=== PATIENT | female | born 2000 | race Caucasian/White ===

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

== ENCOUNTER 2019-02-01 14:36 | Outpatient (REF) | payer MEDICAID, SELFPAY ==
[2019-02-01 21:00] LABS: HCT 40.5 % (36.0-46.0); HGB 13.6 g/dL (12.0-15.5); Mean Corp. HGB Concentration 33.6 g/dL (32.0-36.0); Mean Corpuscular Hemoglobin 30.4 pg (27.0-33.0); Mean Corpuscular Volume 90.6 fL (80-95); Mean Platelet Volume 9.8 fL (8.0-11.0); Platelet Count 221 x1000/uL (130-400); RBC 4.47 m/cumm (4.00-5.20); RBC Distribution Width 12.7 % (11.7-14.6); White Blood Cell Count 4.45 k/cumm (4.4-10.8)
[2019-02-01 21:36] LABS: ALT 23 U/L (12-78); AST 14 U/L (15-37); Anion Gap 8.8 mmol/L (3-11); BUN 12 mg/dL (7-18); CO2 26.2 mmol/L (21.0-32.0); CREATININE 0.71 mg/dL (0.55-1.02); Calcium 8.8 mg/dL (8.5-10.1); Chloride 105 mmol/L (98-107); Glucose 85 mg/dL (70-100); Potassium 4.4 mmol/L (3.5-5.1); Sodium 140 mmol/L (136-145)
[2019-02-05 11:33] LABS: Lyme Ab w Rflx to Lyme Confirm Negative
[2019-02-05 20:43] LABS: Anaplasma phagocytophilum Negative (Negative); B. miyamotoi PCR Negative (Negative); Babesia divergens/MO-1 Negative (Negative); Babesia duncani Negative (Negative); Babesia microti Negative (Negative); Ehrlichia chaffeensis Negative (Negative); Ehrlichia ewingii/canis Negative (Negative); Ehrlichia muris eauclairensis Negative (Negative)
== END 2019-02-01 14:56 ==
LOC: NCHCN 14:36
PROVIDERS: PCP Nurse Practitioner Family; Visit Provider Nurse Practitioner Family
DX: M35.7 Hypermobility syndrome (principal); N92.6 Irregular menstruation, unspecified
CPT/HCPCS: 80048; 85027; 87798; 84450; 84460; 86618

== ENCOUNTER 2019-10-31 21:05 | Outpatient (REF) | payer OTHER, SELFPAY | END 2019-10-31 21:25 | LOC: NCHCN 21:05 | PROVIDERS: PCP Nurse Practitioner Family; Visit Provider Nurse Practitioner Family | DX: R30.0 Dysuria (principal) | CPT/HCPCS: 87086 ==

== ENCOUNTER 2019-11-02 21:08 | Outpatient (REF) | payer OTHER, SELFPAY ==
[2019-11-05 15:14] LABS: Chlamydia Result Positive (Negative); GC Result Negative (Negative)
== END 2019-11-02 21:28 ==
LOC: NCHCN 21:08
PROVIDERS: PCP Nurse Practitioner Family; Visit Provider Nurse Practitioner Family
DX: R30.0 Dysuria (principal); Z11.3 Encounter for screening for infections with a predominantly sexual mode of transmission
CPT/HCPCS: 87491; 87591

== ENCOUNTER 2020-01-16 15:29 | Outpatient (REF) | payer BC, SELFPAY ==
[2020-01-16 20:49] LABS: HCT 40.3 % (36.0-46.0); HGB 13.2 g/dL (11.2-15.7); MCH 30.3 pg (27.0-33.0); MCHC 32.8 % (32.0-36.0); MCV 92.6 fL (80-95); MPV 10.3 fL (8.0-11.0); Platelet Count 208 10^3/uL (130-400); RBC 4.35 10^6/uL (3.93-5.22); RDW-SD 41.3 fL
[2020-01-16 21:13] LABS: ALT 22 U/L (14-59); AST 14 U/L (15-37); Alkaline Phosphatase 53 U/L (46-116); Anion Gap 8.9 mmol/L (3-11); BUN 10 mg/dL (7-18); Bilirubin, Total 0.2 mg/dL (0.2-1.0); C-Reactive Protein 0.07 mg/dL (0.0-0.3); CO2 27.1 mmol/L (21.0-32.0); CREATININE 0.72 mg/dL (0.55-1.02); Calcium 9.1 mg/dL (8.5-10.1); Chloride 104 mmol/L (98-107); Glucose 85 mg/dL (74-106); Potassium 4.2 mmol/L (3.5-5.1); Sodium 140 mmol/L (136-145); Total Protein 7.3 g/dL (6.4-8.2)
[2020-01-16 21:52] LABS: ESR 14 mm/hr (0-20)
== END 2020-01-16 15:49 ==
LOC: NCHCN 15:29
PROVIDERS: PCP Nurse Practitioner Family; Visit Provider Physician Assistant
DX: K62.5 Hemorrhage of anus and rectum (principal)
CPT/HCPCS: 80053; 85027; 85652; 86140

== ENCOUNTER 2020-03-17 16:53 | Inpatient (IN) | payer BC, SELFPAY ==
--- NOTE | 2020-03-17 17:05 | ED.GENADUL_ITS ---
Discharge Plan Disposition Patient Disposition: [facility] INPATIENT Condition: Fair Discharge Details Chief Complaint: Abd Prob Clinical Impression: Pyelonephritis Admit Date/Time: 03/17/20 19:43 Admit Provider: Javi Pereira Attending Provider: Javi Pereira Primary Care Provider: Aurea Frey ED Provider: Krissy Mukherjee Discharge Data Discharge Date/Time-TO BE ENTERED AT DEPARTURE: 03/17/20 20:55 Medical Decision Making Patient is a pleasant 19-year-old female patient with a chief complaint of right-sided flank and abdominal pain. She reports this began last night but increased hourly. Pain is now unmanageable. States she been using Advil without any resolution of her discomfort. She has not had this historically. Previous abdominal surgeries. Patient denies being , had a UPT at primary care today reports it was negative. States that she has been having low-grade fevers. Denies sick contacts or URI symptoms. No change in bowel habits. The urinating more frequently than normal but denies any dysuria or hematuria. Denies any vaginal symptoms. Has vomited x3 and is currently nauseated. On exam, patient appears tearful and uncomfortable. Lungs are clear. Patient is exquisitely tender over right CVA. Does have some mild right lower abdominal pain as well. She also has pain with movement of the right leg, this pain radiates up the right flank. She has no peritoneal findings. She has a family history of kidney stones, I am concerned for potential infected stone and will move forward with CT. Also considered appendicitis, pyelonephritis vs. other. Will treat pain with morphine, nausea with zofran. Will hydrate. Pain does not seem low enough to suggest torsion, she has no vaginal symptoms. UPT negative. FINDINGS: Liver: Normal. No mass. Gallbladder and bile ducts: Normal. No calcified stones. No ductal dilation. Pancreas: Normal. No ductal dilation. Spleen: Normal. No splenomegaly. Adrenals: Normal. No mass. Kidneys and ureters: Heterogeneous hypoattenuating focus in the lower pole of the right kidneys. No hydronephrosis. Stomach and bowel: Unremarkable. No obstruction. No mucosal thickening. Appendix: No evidence of appendicitis. Intraperitoneal space: Trace fluid in the cul-de-sac. No free air. Vasculature: Unremarkable. No abdominal aortic aneurysm. Lymph nodes: Unremarkable. No enlarged lymph nodes. Urinary bladder: Slight thickening of the wall of the urinary bladder. Reproductive: 4.2 cm right ovarian cyst. Bones/joints: Unremarkable. No acute fracture. Soft tissues: Unremarkable. IMPRESSION: 1. 4.2 cm right ovarian cyst. 2. Possible right pyelonephritis and cystitis. Labs reviewed. No leukocytosis. Stable H&H. CMP without significant abnormality. Patient does have a large amount of leukocyte esterase, many bacteria. This has been sent for culture. Discussed the findings with the patient. We will begin her on IV antibiotics. We will continue to hydrate the patient. She does continue to need IV pain medications. As she has been febrile, requiring IV pain medications I do feel that admission for IV antibiotics and continued management of her pyelonephritis is appropriate. Consulted with Dr. Pereira who agrees to admission. Discussed this plan with the patient is in agreement. HPI General Mode of arrival: ambulatory . Date/Time Provider Initiated Documentation: 03/17/20 17:05 . Limitations to Documentation: no limitations . Information obtained by: patient and RN notes reviewed . History of Present Illness 19 year old F presents to the emergency department with the chief complaint of Right flank pain, described as moderate, with intensity rated at 7. Quality is described as aching, and is localized to the back and right. Patient abdomen (Indicates right lower quadrant). Patient started experiencing this day(s) (1) and it has been constant. No relieving factors improve symptom(s), No exacerbating factors reported . Patient notes fever/chills, loss of appetite and nausea/vomiting (Vomited x3); denies chest pain, cough, rash, shortness of breath and weakness. Patient did receive the following treatments prior to arrival, none Related Data Home Medications Medication Instructions Recorded Confirmed ibuprofen [Advil] 200 mg PO PRN 10/08/16 03/17/20 Allergies Allergy/AdvReac Type Severity Reaction Status Date / Time No Known Allergies Allergy Unverified 03/17/20 17:15 General ALEXANDRO: 3 Review of Systems Constitutional Constitutional: Reports as per HPI, Denies chills, Denies fatigue, Reports fever(s), Denies headache(s) and Reports poor appetite ENT Ears, Nose, Mouth, and Throat: Denies headache(s) Cardiovascular Cardiovascular: Reports as per HPI, Denies chest pain and Denies dyspnea Respiratory Respiratory: Reports as per HPI, Denies cough and Denies dyspnea Gastrointestinal Gastrointestinal: Reports as per HPI Genitourinary Genitourinary: Denies genital pruritis, Denies genital lesions, Denies dysuria, Denies pelvic pain, Reports flank pain, Reports urinary urgency, Denies vaginal discharge and Denies vaginal odor Musculoskeletal Musculoskeletal: Reports as per HPI and Reports back pain Integumentary/Breasts Skin/Breast: Reports as per HPI and Denies rash Neurologic Neurologic: Reports as per HPI and Denies headache(s) Endocrine Endocrine: Denies fatigue [facility] Medical History (Updated 03/17/20 @ 22:45 by LINUS Lantigua) Migraine Surgical History Meniscectomy done 10/02, Right / removed 05/05 Left, about 1/2 of meniscus removed (likely she had excess amount on tissue) Family History Mother Dairy product intolerance & several other maternal relatives Father No problems noted. Brother No problems noted. Grandparent Substance abuse Essential hypertension Heart disease Hyperlipidemia Neoplasm Social History Smoking/Tobacco Use Status: Never Alcohol Intake: never Drug use: Never Substance use type: does not use Do you feel safe in your relationship?: Yes Exam Const General: cooperative, uncomfortable, no acute distress, well developed and ill appearing acutely Nutritional Appearance: average body habitus and well nourished Orientation: alert and awake HENMO Head: normal to inspection Mouth: mucous membranes dry (dry) Resp Effort & Inspection: normal respiratory effort, able to speak in complete sentences and no respiratory distress Auscultation: clear to auscultation bilaterally, no rales, no rhonchi and no wheezes Cardio Rate: tachycardic Rhythm: regular rhythm Heart Sounds: S1 normal and S2 normal GI Inspection: normal to inspection Palpation: soft, no hepatosplenomegaly, not firm, no guarding, no masses, no pulsatile masses, not rigid and tender (mild tenderness RLQ, no peritoneal findings) with no rebound tenderness Percussion: normal to percussion Auscultation: normal bowel sounds Back/Spine/Pelvis Back: CVA tenderness (right) Skin General skin exam: no rashes or lesions noted Trauma: no lacerations or abrasions Neuro General: patient alert and patient awake Cognition: normal cognition Speech: speech normal Gait: normal gait Psych Appearance: grossly normal and well kempt Mental Status: mental status grossly normal Speech and Movement: speech and movement normal
[2020-03-17 17:11] VITALS: BP 116/66; PULSE 128; RESP 16; TEMP 37.7; O2SAT 98
[2020-03-17 17:30] LABS: Bilirubin Negative (Negative); Blood Small (Negative); Clarity Cloudy (Clear); Glucose Negative (Negative); Ketones Trace mg/dL (Negative); Leukocyte Esterase Large (Negative); Nitrite Negative (Negative); Urobilinogen 0.2 EU/dL (Up TO 0.2)
[2020-03-17 17:43] LABS: WBC >50 HPF (0-5)
[2020-03-17 17:44] LABS: Bacteria Many HPF (Negative); C & S Indicated? Yes; Casts Negative LPF (Negative); Crystals Negative HPF (Negative); Epithelial Cells Few HPF (Negative); Mucus Trace (Negative)
--- NOTE | 2020-03-17 17:45 | DI.CT_ITS ---
EXAM: CT ABDOMEN PELVIS W CLINICAL HISTORY: RLQ and right flank pain. TECHNIQUE: Imaging Protocol: Axial computed tomography images with coronal and sagittal reformatted images were created and reviewed CONTRAST MATERIAL: Intravenous: Omnipaque 350 Contrast volume:100 ml Oral no COMPARISON: CT ABD PELVIS WITH CONTRAST from 10/20/2017 FINDINGS: ABDOMEN: Lung Bases: Normal where visualized. Liver: Normal density. No measurable mass. Gallbladder and biliary tract: No radiodense calculus or dilation. Pancreas: Normal density, no abnormal calcifications or inflammatory process. Spleen: Normal. Kidneys: Normal size, contour and axis. No radiodense stones or obstructive uropathy. No masses seen. Ill-defined area of decreased perfusion posteriorly in the lower pole of the right kidney suspicious for pyelonephritis. There is no perinephric collection Adrenal glands: No masses seen. Abdominal Aorta: Abdominal portion non-dilated. PELVIS: Bladder: Symmetric distention, no gross wall thickening. Bowel: No obstruction or bowel wall thickening. Peritoneal cavity: No ascites, collection or mesenteric inflammatory response. Physiologic quantity o f fluid in the cul-de-sac. Bones: Disc bulging at L4-5. Mild narrowing of the disc space at L5-S1. No fracture. Reproductive organs: 4 centimeter right ovarian cyst. Retroverted uterus. Lymph nodes: Unremarkable. Impression: 4 centimeter right ovarian cyst and small amount of free fluid. Hypoperfusion of the lower pole of the right kidney, suspicious for pyelonephritis RADIATION DOSE DELIVERED: 868.08mGy.cm Total DLP DATA REPOSITORY: All CT scans at this facility are submitted to the National Radiology Data Registry (NRDR) Dose Index Registry (DIR) with the [employer] (A[employer]). RADIATION OPTIMIZATION: All CT scans at this facility use at least one of these dose optimization te chniques: automated exposure control; mA and/or kV adjustment per patient size (includes targeted exa ms where dose is matched to clinical indication); or iterative reconstruction.
[2020-03-17] MEDS: Lactated Ringers 1,000 ML 1000 ML IV ×2 (18:00→19:34)
[2020-03-17] MEDS: Ondansetron 4 MG/2 ML VIAL IVP ×2 (18:00→23:35)
[2020-03-17 18:15] LABS: Abs Immature Grans 0.03 10^3/uL (0.0-0.06); Absolute Basophil Count 0.01 10^3/uL (0.0-0.2); Absolute Eosinophil Count 0.01 10^3/uL (0.0-0.7); Absolute Monocyte Count 0.81 10^3/uL (0.1-0.8); Absolute Neutrophil Count 7.39 10^3/uL (1.2-6.7); Basophils % 0.1; Eosinophils % 0.1; HCT 39.6 % (36.0-46.0); Immature Grans % 0.3; Lymphocytes % 14.5; MCH 29.7 pg (27.0-33.0); MCHC 32.8 % (32.0-36.0); MCV 90.6 fL (80-95); MPV 9.7 fL (8.0-11.0); Monocytes % 8.4; Neutrophils % 76.6; Nucleated RBC 0 %; Platelet Count 197 10^3/uL (130-400); RBC 4.37 10^6/uL (3.93-5.22); RDW 11.9 % (11.7-14.6); RDW-SD 39.6 fL; WBC 9.65 10^3/uL (4.4-10.8)
[2020-03-17 18:26] LABS: ALT 10 U/L (14-59); AST 12 U/L (15-37); Albumin 4.1 g/dL (3.4-5.0); Alkaline Phosphatase 61 U/L (46-116); Anion Gap 9.9 mmol/L (3-11); BUN 6 mg/dL (7-18); Bilirubin, Total 0.3 mg/dL (0.2-1.0); CO2 25.1 mmol/L (21.0-32.0); CREATININE 0.74 mg/dL (0.55-1.02); Calcium 9.3 mg/dL (8.5-10.1); Chloride 101 mmol/L (98-107); Glucose 90 mg/dL (74-106); Potassium 3.7 mmol/L (3.5-5.1); Sodium 136 mmol/L (136-145)
[2020-03-17] MEDS: Omnipaque 350 MG/ML 100 ML BTL IJ (18:45)
[2020-03-17] MEDS: Normal Saline - Diluent 50 ML VIAL IV (18:46)
[2020-03-17 18:49] VITALS: BP 117/66; PULSE 116; RESP 16; TEMP 36.8; O2SAT 99
--- NOTE | 2020-03-17 19:01 | DI.VRAD_ITS ---
PROCEDURE INFORMATION: Exam: CT Abdomen And Pelvis With Contrast Exam date and time: 03/17/2020 5:55 PM Age: 19 years old Clinical indication: Abdominal pain; Localized; Right lower quadrant (rlq); Patient HX: Rlq and R flank pain TECHNIQUE: Imaging protocol: Computed tomography of the abdomen and pelvis with intravenous contrast. COMPARISON: CT ABD PELVIS WITH CONTRAST 10/20/2017 4:41 PM FINDINGS: Liver: Normal. No mass. Gallbladder and bile ducts: Normal. No calcified stones. No ductal dilation. Pancreas: Normal. No ductal dilation. Spleen: Normal. No splenomegaly. Adrenals: Normal. No mass. Kidneys and ureters: Heterogeneous hypoattenuating focus in the lower pole of the right kidneys. No hydronephrosis. Stomach and bowel: Unremarkable. No obstruction. No mucosal thickening. Appendix: No evidence of appendicitis. Intraperitoneal space: Trace fluid in the cul-de-sac. No free air. Vasculature: Unremarkable. No abdominal aortic aneurysm. Lymph nodes: Unremarkable. No enlarged lymph nodes. Urinary bladder: Slight thickening of the wall of the urinary bladder. Reproductive: 4.2 cm right ovarian cyst. Bones/joints: Unremarkable. No acute fracture. Soft tissues: Unremarkable. IMPRESSION: 1. 4.2 cm right ovarian cyst. 2. Possible right pyelonephritis and cystitis. Dictated and Authenticated by: Randall Kat MD. Ordering:ANDRES Rey MD
[2020-03-17] MEDS: ACETAMINOPHEN 1,000 MG/100 ML BTL 400 MG IVPB (19:06)
[2020-03-17] MEDS: Ketorolac 30 MG/ML VIAL IVP (19:33)
[2020-03-17] MEDS: cefTRIAXone 1 GM/50 ML BAG IVPB (19:34)
--- NOTE | 2020-03-17 19:36 | W.PM.HP.N ---
Date of service: 03/17/20 Time of Service: 19:37 Assessment and Plan Assessment and plan (1) Pyelonephritis: Status: Acute Assessment and plan: Pyelo. Will continue Rocephin (pending cxx) , IVF and prn analgesics and antiemetics. History of Present Illness History of Present Illness Chief Complaint: flank pain Narrative: 19 female reports one day right flank pain along with urinary urgency/frequency and nausea. In ER findings of note for pyura and CT showing signs of right pyelo, w.o hydro and w/o stone. Patient given dose Rocephin and due to ongoing pain and nausea is admitted for further management. Review of Systems All systems reviewed & are unremarkable except as noted in HPI and below PFSH Medical History (Updated 03/17/20 @ 19:41 by Javi Pereira MD) Migraine Surgical History Meniscectomy done 10/02, Right 3/4 removed 05/05 Left, about 1/2 of meniscus removed (likely she had excess amount on tissue) Family History Mother Dairy product intolerance & several other maternal relatives Father No problems noted. Brother No problems noted. Grandparent Substance abuse Essential hypertension Heart disease Hyperlipidemia Neoplasm Social History Smoking/Tobacco Use Status: Never Alcohol Intake: never Drug use: Never Substance use type: does not use Do you feel safe in your relationship?: Yes Meds Home Medications and Allergies Home Medications Medication Instructions Recorded Confirmed Type ibuprofen [Advil] 200 mg PO PRN 10/08/16 03/17/20 History Allergies Allergy/AdvReac Type Severity Reaction Status Date / Time No Known Allergies Allergy Unverified 03/17/20 17:15 Exam Narrative Exam Narrative: 117/66, 116, 36.8 (Tmax 37.7), 176, 99% RA. HEENT atraumatic; neck supple; lungs clear; heart tachy/regular; + right CVAT; abdomen mild RLQ/suprapubic tenderness; neuro Ox3, nonfocal Results Labs Result diagrams: 03/17/20 17:54 03/17/20 17:54 Labs: Laboratory Results - last 24 hr 09/03/17/20 03/17/20 17:05 17:54 17:54 WBC 9.65 RBC 4.37 Hgb 13.0 Hct 39.6 MCV 90.6 MCH 29.7 MCHC 32.8 RDW 11.9 Plt Count 197 MPV 9.7 Immature Gran % 0.3 Neutrophils % 76.6 Lymphocytes % 14.5 Monocytes % 8.4 Eosinophils % 0.1 Basophils % 0.1 Nucleated RBC % 0 Absolute Neutrophils 7.39 H Absolute Lymphocytes 1.40 Absolute Monocytes 0.81 H Absolute Eosinophils 0.01 Absolute Basophils 0.01 Sodium 136 Potassium 3.7 Chloride 101 Carbon Dioxide 25.1 Anion Gap 9.9 BUN 6 L Creatinine 0.74 Estimated GFR/1.73 m2 >= 60.00 Glucose 90 Calcium 9.3 Total Bilirubin 0.3 AST 12 L ALT 10 L Alkaline Phosphatase 61 Total Protein 8.0 Albumin 4.1 Urine Color Yellow Urine Clarity Cloudy Urine pH 7.0 Ur Specific [place] 1.020 Urine Protein 30 H Urine Ketones Trace H Urine Blood Small H Urine Nitrite Negative Urine Bilirubin Negative Urine Urobilinogen 0.2 Ur Leukocyte Esterase Large H Urine RBC 3-5 H Urine WBC >50 H Ur Epithelial Cells Few Urine Crystals Negative Urine Bacteria Many Urine Casts Negative Urine Mucus Trace Ur Culture Indicated? Yes Urine Glucose Negative Last Vital Signs Temp 36.8 C 03/17/20 18:49 Pulse 116 H 03/17/20 18:49 Resp 16 03/17/20 18:49 BP 117/66 03/17/20 18:49 Pulse Ox 99 03/17/20 18:49 COVID-19 Screening Have you,or household,traveled outside [place] in last 14 days?: No Had IN PERSON contact w/suspected or confirmed C-19 person: No
--- NOTE | 2020-03-17 20:02 | NUR.NOTE ---
report to TANIA Garcia
[2020-03-17 20:47] VITALS: BP 102/62; PULSE 100; RESP 16; TEMP 37.2; O2SAT 100
[2020-03-17 21:01] VITALS: BP 115/79; PULSE 105; RESP 20; TEMP 36.7; O2SAT 99
[2020-03-17] MEDS: Normal Saline Flush 10 ML SYR IVP ×2 (21:18→22:05)
[2020-03-17] MEDS: Normal Saline 1,000 ML 150 ML IV (21:18)
[2020-03-17] MEDS: Acetaminophen 325 MG TAB 650 MG PO (22:03)
[2020-03-18] MEDS: Acetaminophen 325 MG TAB 650 MG PO ×2 (04:15→08:05)
[2020-03-18 04:16] VITALS: BP 128/83; PULSE 124; RESP 18; TEMP 36.6; O2SAT 100
[2020-03-18] MEDS: Normal Saline 1,000 ML 150 ML IV ×3 (04:16→18:25)
[2020-03-18] MEDS: Normal Saline 50 ML 200 ML (04:29)
[2020-03-18] MEDS: Ondansetron 4 MG/2 ML VIAL IVP ×3 (04:55→22:37)
[2020-03-18 07:40] VITALS: BP 111/75; PULSE 105; RESP 21; TEMP 36.3; O2SAT 99
[2020-03-18 09:11] LABS: Abs Immature Grans 0.01 10^3/uL (0.0-0.06); Absolute Basophil Count 0.04 10^3/uL (0.0-0.2); Absolute Eosinophil Count 0.07 10^3/uL (0.0-0.7); Absolute Lymphocyte Count 1.23 10^3/uL (1.2-3.4); Absolute Monocyte Count 0.45 10^3/uL (0.1-0.8); Absolute Neutrophil Count 3.73 10^3/uL (1.2-6.7); Basophils % 0.7; Eosinophils % 1.3; HCT 35.7 % (36.0-46.0); HGB 11.7 g/dL (11.2-15.7); Immature Grans % 0.2; Lymphocytes % 22.2; MCH 29.8 pg (27.0-33.0); MCHC 32.8 % (32.0-36.0); MCV 91.1 fL (80-95); MPV 9.9 fL (8.0-11.0); Monocytes % 8.1; Neutrophils % 67.5; Nucleated RBC 0 %; Platelet Count 163 10^3/uL (130-400); RBC 3.92 10^6/uL (3.93-5.22); RDW 12.1 % (11.7-14.6); RDW-SD 40.3 fL; WBC 5.53 10^3/uL (4.4-10.8)
[2020-03-18 09:32] LABS: BUN 6 mg/dL (7-18); CREATININE 0.88 mg/dL (0.55-1.02); Calcium 8.8 mg/dL (8.5-10.1); Chloride 104 mmol/L (98-107); Glucose 83 mg/dL (74-106); Potassium 3.4 mmol/L (3.5-5.1); Sodium 140 mmol/L (136-145)
[2020-03-18] MEDS: levoFLOXacin 500 MG, levoFLOXacin 250 MG 750 MG PO (11:18)
[2020-03-18] MEDS: Potassium Chloride 20 MEQ TABCR 40 MEQ PO (11:19)
[2020-03-18 11:51] LABS: COVID-19 RT-PCR UVMMC Result Negative (Negative)
--- NOTE | 2020-03-18 14:15 | PGE_ITS ---
Date of Service Date of service: 03/18/20 Time of Service: 14:15 Assessment and Plan Assessment and plan (1) Pyelonephritis: Start date: 03/18/20 Start time: 14:40 Status: Acute Assessment and plan: Pain improving, Possible pyeloneprhitis by imaging. Afebrile, no leukocytosis, urine with large leuk estr and wbc. Urine culture with stap greater than 100,000 colonies. Will await further speciation and sensitivities. Switched to levaquin BC pending. Denies N/V/ Diet increased to soft. Subjective Subjective Patient reports: feels better Interval history since last seen: Pain is improving. It is becoming more localized to pelvic area. Will try pyridium. Denies N/V/D. Exam Narrative Exam Narrative: Pleasant Young adult female. laying in bed in the dark AAO. Nose ring in place. smeared eyeliner as though she just woke up. PERRLA, no lymphedema LSC to all mcallister Cardio: RRR no murmur or ectopic beat GI: abd soft nontender BSx4 GI: CVA tenderness to right flank area with palpation, pain to lower quadrant more on right than left. Patient states improvement in pain Skin: intact Neuro: AAOx3, cooperative Objective Last Vital Signs Temp 36.3 C L 03/18/20 07:40 Pulse 105 H 03/18/20 07:40 Resp 21 03/18/20 07:40 BP 111/75 03/18/20 07:40 Pulse Ox 99 03/18/20 07:40 Laboratory Results - last 24 hr 03/17/20 03/17/20 03/17/20 17:05 17:54 17:54 WBC 9.65 RBC 4.37 Hgb 13.0 Hct 39.6 MCV 90.6 MCH 29.7 MCHC 32.8 RDW 11.9 Plt Count 197 MPV 9.7 Immature Gran % 0.3 Neutrophils % 76.6 Lymphocytes % 14.5 Monocytes % 8.4 Eosinophils % 0.1 Basophils % 0.1 Nucleated RBC % 0 Absolute Neutrophils 7.39 H Absolute Lymphocytes 1.40 Absolute Monocytes 0.81 H Absolute Eosinophils 0.01 Absolute Basophils 0.01 Sodium 136 Potassium 3.7 Chloride 101 Carbon Dioxide 25.1 Anion Gap 9.9 BUN 6 L Creatinine 0.74 Estimated GFR/1.73 m2 >= 60.00 Glucose 90 Calcium 9.3 Total Bilirubin 0.3 AST 12 L ALT 10 L Alkaline Phosphatase 61 Total Protein 8.0 Albumin 4.1 Urine Color Yellow Urine Clarity Cloudy Urine pH 7.0 Ur Specific [place] 1.020 Urine Protein 30 H Urine Ketones Trace H Urine Blood Small H Urine Nitrite Negative Urine Bilirubin Negative Urine Urobilinogen 0.2 Ur Leukocyte Esterase Large H Urine RBC 3-5 H Urine WBC >50 H Ur Epithelial Cells Few Urine Crystals Negative Urine Bacteria Many Urine Casts Negative Urine Mucus Trace Ur Culture Indicated? Yes Urine Glucose Negative COVID-19 PCR Nasopharyn COVID-19 PCR Ref Test Perform Site 03/17/20 03/18/20 03/18/20 20:21 08:37 08:37 WBC 5.53 D RBC 3.92 L Hgb 11.7 Hct 35.7 L MCV 91.1 MCH 29.8 MCHC 32.8 RDW 12.1 Plt Count 163 MPV 9.9 Immature Gran % 0.2 Neutrophils % 67.5 Lymphocytes % 22.2 Monocytes % 8.1 Eosinophils % 1.3 Basophils % 0.7 Nucleated RBC % 0 Absolute Neutrophils 3.73 Absolute Lymphocytes 1.23 Absolute Monocytes 0.45 Absolute Eosinophils 0.07 Absolute Basophils 0.04 Sodium 140 Potassium 3.4 L Chloride 104 Carbon Dioxide 27.0 Anion Gap 9.0 BUN 6 L Creatinine 0.88 Estimated GFR/1.73 m2 >= 60.00 Glucose 83 Calcium 8.8 Total Bilirubin AST ALT Alkaline Phosphatase Total Protein Albumin Urine Color Urine Clarity Urine pH Ur Specific [place] Urine Protein Urine Ketones Urine Blood Urine Nitrite Urine Bilirubin Urine Urobilinogen Ur Leukocyte Esterase Urine RBC Urine WBC Ur Epithelial Cells Urine Crystals Urine Bacteria Urine Casts Urine Mucus Ur Culture Indicated? Urine Glucose COVID-19 PCR Negative Nasopharyn COVID-19 PCR Not Applicable Ref Test Perform Site [facility] lab
[2020-03-18] MEDS: Normal Saline Flush 10 ML SYR IVP (14:30)
[2020-03-18 15:43] VITALS: BP 101/68; PULSE 94; RESP 18; TEMP 37.1; O2SAT 100
[2020-03-18] MEDS: traMADol 50 MG TAB PO (16:46)
--- NOTE | 2020-03-18 16:56 | PHA.REVIEW ---
Pharmacy Admission Review - Admission Clinical Review (Last Reviewed 03/17/20 @ 22:29 by LINUS Lantigua) Pyelonephritis (Acute) No Known Allergies Allergy (Unverified 03/17/20 17:15) Height 5 ft 7 in Weight 69.853 kg - Renal Dosing Renal Dosing: BUN 6 mg/dL (7-18) L 03/18/20 08:37 Creatinine 0.88 mg/dL (0.55-1.02) 03/18/20 08:37 Medications needing adjustments: Reviewed (Crcl ~99.1 mL/min current meds okay.) - Anticoagulation Anticoagulation: Hgb 11.7 g/dL (11.2-15.7) 03/18/20 08:37 Hct 35.7 % (36.0-46.0) L 03/18/20 08:37 Plt Count 163 10^3/uL (130-400) 03/18/20 08:37 Creatinine 0.88 mg/dL (0.55-1.02) 03/18/20 08:37 DVT Prohphylaxis: N/A Therapeutic Anticoagulation: N/A - Opiate Usage Evaluate Pain Scale/Pains Meds: Reviewed Scheduled Bowel Reg ordered if on Opiates?: No (will mention to provider) - Relevant Labs Sodium 140 mmol/L (136-145) 03/18/20 08:37 Potassium 3.4 mmol/L (3.5-5.1) L 03/18/20 08:37 Chloride 104 mmol/L (98-107) 03/18/20 08:37 Electrolytes, C-Reactive P, ESR: Reviewed (PO replacement given) - DM Control DM Control: Glucose 83 mg/dL (74-106) 03/18/20 08:37 Insulin Dosing: N/A - Heart Failure/WV EF%, GLORIA's, B-Blockers, Diuretics: N/A - BP Control BP Control: Blood Pressure 101/68 Blood Pressure 111/75 If elevated: N/A - Qtc Review If Elevated: N/A - IV to PO Switch IV Medications: Reviewed - Home Meds Home Med List reviewed: Reviewed (ibuprofen) - Current meds Current Medication Order Review: Intervened (discontinued DI meds, already given and changed ceftriaxone from admix to premix before it was discontinuedn) - Comments Comments/Follow Ups: Watch VS, K+, and for med changes (need of BM meds) Antibiotic Activity - Pharmacy Antibiotic Review Pharmacy Antibiotic Activity: IV to PO (changed from ceftriaxone to IV levofloxacin. Blood cultures pending (drawn after abx started). Urine culture growing staph, not aureus.)
[2020-03-18] MEDS: Phenazopyridine 200 MG TAB PO (19:46)
[2020-03-18 23:15] VITALS: BP 92/57; PULSE 103; RESP 16; TEMP 37.1; O2SAT 99
--- NOTE | 2020-03-19 | DI.MRI_ITS ---
EXAM: MR LUMBAR SPINE WO/W CLINICAL HISTORY: radiculopathy, pyelo, ?epidur abscess/cauda equina. TECHNIQUE: Multiplanar multisequence MRI of the Lumbar Spine was performed. CONTRAST MATERIAL: IV Contrast: mL of Dotarem contrast administered. COMPARISON: CR XR shoulder LT complete 2+V from 05/05/[address] ABDOMEN PELVIS W from 03/17/2020 FINDINGS: Bones: The last intervertebral disc space is designated the L5/S1 level for the numbering purpose of this examination. The vertebral body heights are well maintained. Alignment is satisfactory. The sig nal characteristics are unremarkable. Cord: The conus tip ends at the T12 level. It is of normal size and signal intensity. T12-L1: No disc herniations or bulges are present. L1-2: No disc herniations or bulges are present. L2-3: No disc herniations or bulges are present. L3-4: No disc herniations or bulges are present. L4-5: Moderate size central disc protrusion which impresses on the anterior aspect of the thecal sac and causes mild central canal stenosis. Mild facet joint degenerative changes are present at this l evel. There is no neural foraminal narrowing. L5-S1: No disc herniations or bulges are present. Soft tissues: The visualized SI joints and sacrum are well maintained. The paraspinal soft tissues ar e unremarkable. There is no evidence of suspicious enhancement. IMPRESSION: Moderate sized central disc protrusion at L 4 5 causing mild central canal stenosis. There is no karlie dence of an epidural abscess or other abnormal area of enhancement. DATA REPOSITORY:
[2020-03-19] MEDS: Acetaminophen 325 MG TAB 650 MG PO ×3 (00:39→14:25)
[2020-03-19] MEDS: Ibuprofen 600 MG TAB PO ×2 (00:40→17:21)
[2020-03-19] MEDS: Normal Saline 1,000 ML 150 ML IV ×3 (00:41→16:00)
[2020-03-19] MEDS: Mylanta Suspension 30 ML CUP PO (00:41)
[2020-03-19 08:27] VITALS: BP 120/78; PULSE 105; RESP 18; TEMP 36; O2SAT 100
[2020-03-19] MEDS: Phenazopyridine 200 MG TAB PO ×2 (10:01→19:29)
[2020-03-19] MEDS: levoFLOXacin 500 MG, levoFLOXacin 250 MG 750 MG PO (10:02)
[2020-03-19] MEDS: Normal Saline Flush 10 ML SYR IVP ×3 (10:06→18:14)
[2020-03-19 10:21] LABS: Abs Immature Grans 0.01 10^3/uL (0.0-0.06); Absolute Basophil Count 0.01 10^3/uL (0.0-0.2); Absolute Eosinophil Count 0.08 10^3/uL (0.0-0.7); Absolute Lymphocyte Count 1.45 10^3/uL (1.2-3.4); Absolute Monocyte Count 0.62 10^3/uL (0.1-0.8); Absolute Neutrophil Count 3.84 10^3/uL (1.2-6.7); Basophils % 0.2; Eosinophils % 1.3; HCT 33.1 % (36.0-46.0); HGB 10.8 g/dL (11.2-15.7); Immature Grans % 0.2; Lymphocytes % 24.1; MCHC 32.6 % (32.0-36.0); MCV 91.9 fL (80-95); MPV 9.1 fL (8.0-11.0); Monocytes % 10.3; Neutrophils % 63.9; Nucleated RBC 0 %; Platelet Count 161 10^3/uL (130-400); RDW 11.9 % (11.7-14.6); RDW-SD 40.2 fL; WBC 6.01 10^3/uL (4.4-10.8)
[2020-03-19 10:38] LABS: C-Reactive Protein 3.46 mg/dL (0.0-0.3)
[2020-03-19 10:41] LABS: Anion Gap 4.3 mmol/L (3-11); BUN 5 mg/dL (7-18); CO2 28.7 mmol/L (21.0-32.0); Calcium 8.7 mg/dL (8.5-10.1); Chloride 108 mmol/L (98-107); Glucose 104 mg/dL (74-106); Magnesium 2.1 mg/dL (1.8-2.4); Potassium 3.9 mmol/L (3.5-5.1); Sodium 141 mmol/L (136-145)
[2020-03-19 11:08] LABS: Procalcitonin < 0.1 ng/mL
--- NOTE | 2020-03-19 12:14 | W.PM.PROGNOT ---
Date of Service Date of service: 03/19/20 Time of Service: 12:14 Assessment and Plan Assessment and plan (1) Pyelonephritis: Status: Acute Assessment and plan: Pain improving, Possible pyeloneprhitis by imaging. Afebrile, no leukocytosis, urine with large leuk estr and wbc. Urine culture with staph greater than 100,000 colonies. Will await further speciation and sensitivities. Switched to levaquin and vanco added, will downstep to oral once sensitivities available BC negative to date. tolerating a regular diet now. Diet increased to soft. (2) Thigh numbness: Status: Acute Assessment and plan: MRI with no acute findings case discussed with Dr Arellano. (3) Discharge planning issues: Status: Acute Assessment and plan: anticipate a discharge to home with services once cultures back so we can narrow to orals. discussed with DR Arellano who is in agreement Subjective Subjective Patient reports: pain is less and afebrile Interval history since last seen: reports ongoing thigh numbness. refusing bladder scan. Exam Const General: cooperative, healthy appearing and comfortable Nutritional Appearance: average body habitus Orientation: alert, awake and oriented x3 HENMT Head: normal to inspection, normocephalic and atraumatic Mouth: oral mucosae normal Resp Effort & Inspection: normal respiratory effort Auscultation: clear to auscultation bilaterally Cardio Rate: regular rate Rhythm: regular rhythm GI Inspection: normal to inspection Palpation: soft Auscultation: normal bowel sounds Skin General skin exam: no rashes or lesions noted Neuro General: patient alert, patient awake and patient oriented x3 Extrem General: normal to inspection, full ROM and no pedal edema Objective Last Vital Signs Temp 36.0 C L 03/19/20 08:27 Pulse 105 H 03/19/20 08:27 Resp 18 03/19/20 08:27 BP 120/78 03/19/20 08:27 Pulse Ox 100 03/19/20 08:27 Laboratory Results - last 24 hr 03/19/20 03/19/20 03/19/20 10:12 10:12 10:12 WBC RBC Hgb Hct MCV MCH MCHC RDW Plt Count MPV Immature Gran % Neutrophils % Lymphocytes % Monocytes % Eosinophils % Basophils % Nucleated RBC % Absolute Neutrophils Absolute Lymphocytes Absolute Monocytes Absolute Eosinophils Absolute Basophils Sodium 141 Potassium 3.9 Chloride 108 H Carbon Dioxide 28.7 Anion Gap 4.3 BUN 5 L Creatinine 0.80 Estimated GFR/1.73 m2 >= 60.00 Glucose 104 Calcium 8.7 Magnesium 2.1 C-Reactive Protein 3.46 H Procalcitonin < 0.1 03/19/20 10:12 WBC 6.01 RBC 3.60 L Hgb 10.8 L Hct 33.1 L MCV 91.9 MCH 30.0 MCHC 32.6 RDW 11.9 Plt Count 161 MPV 9.1 Immature Gran % 0.2 Neutrophils % 63.9 Lymphocytes % 24.1 Monocytes % 10.3 Eosinophils % 1.3 Basophils % 0.2 Nucleated RBC % 0 Absolute Neutrophils 3.84 Absolute Lymphocytes 1.45 Absolute Monocytes 0.62 Absolute Eosinophils 0.08 Absolute Basophils 0.01 Sodium Potassium Chloride Carbon Dioxide Anion Gap BUN Creatinine Estimated GFR/1.73 m2 Glucose Calcium Magnesium C-Reactive Protein Procalcitonin
[2020-03-19] MEDS: Gadoterate meglumine 20 ML VIAL 14 ML IVP (12:15)
--- NOTE | 2020-03-19 14:38 | PDOC.CMIN ---
- If Service Date Differs Date of service: 03/18/20 Time of Service: 14:38
[2020-03-19 15:35] VITALS: BP 93/61; PULSE 83; RESP 18; TEMP 36.8; O2SAT 99
[2020-03-19 15:41] VITALS: BP 110/70
[2020-03-19] MEDS: VANCOMYCIN 1,250 MG in Normal Saline 250 ML 166.667 MG IVPB (16:01)
--- NOTE | 2020-03-19 16:01 | PDOC.CMPRO ---
- If Service Date Differs Date of service: 03/19/20 Time of Service: 16:01 Care Management Progress Note S/O: Lizabeth was lying in bed when CM met with her. She had tears in her eyes as she was talking with SREEDHAR about her course of treatment at [facility]. She is nervous about school, as she can't log in to her classes or email from here. CM offered a patient computer, but she stated that she can't log in unless she has her school computer. She stated that she is trying not to think about that right now. SREEDHAR offered to write a letter to her professors if needed. Lizabeth stated that she has not seen an MD since she arrived at the ED. SREEDHAR looked through her chart to find that she has been seen daily by the [employer] on the hospitalist service. Lizabeth reported that she did not know the plan, and wasn't sure how long she would have to remain at [facility]. CM discussed her concerns with the [employer] Hospitalist, who went to visit with the patient. CM was present to make sure her concerns were addressed. Per provider, urine cultures are pending, and once we have the results a course of abx therapy can be determined. Currently she is on broad spectrum IV abx. If the results are in this afternoon, she may be ready for discharge, as she is now able to tolerate food. CM will continue to follow. A: Lizabeth is a 19 year old female admitted to [facility] on 03/17/20 with pyelonephritis. P: Anticipate Lizabeth will return home with no additional services once she has been medically cleared. She will be driven home via private vehicle by family/friends. She will follow up with her PCP and discharge plan of care. CM will continue to follow.
[2020-03-19 17:25] VITALS: BP 112/73; PULSE 88
[2020-03-19 17:29] VITALS: TEMP 36.4; O2SAT 98
[2020-03-19] MEDS: Ondansetron 4 MG/2 ML VIAL IVP (18:15)
[2020-03-19 20:00] VITALS: BP 99/64; PULSE 84; RESP 18; TEMP 36.9; O2SAT 99
[2020-03-20] MEDS: Mylanta Suspension 30 ML CUP PO (00:37)
[2020-03-20] MEDS: VANCOMYCIN 1,250 MG in Normal Saline 250 ML 166.66 MG IVPB (00:39)
[2020-03-20] MEDS: Normal Saline 1,000 ML 150 ML IV (02:44)
[2020-03-20 03:24] VITALS: BP 97/62; PULSE 78; RESP 17; TEMP 36.3; O2SAT 99
[2020-03-20] MEDS: Acetaminophen 325 MG TAB 650 MG PO (03:31)
[2020-03-20] MEDS: Ibuprofen 600 MG TAB PO (03:31)
[2020-03-20 06:56] LABS: Abs Immature Grans 0.02 10^3/uL (0.0-0.06); Absolute Basophil Count 0.01 10^3/uL (0.0-0.2); Absolute Eosinophil Count 0.09 10^3/uL (0.0-0.7); Absolute Lymphocyte Count 1.51 10^3/uL (1.2-3.4); Absolute Monocyte Count 0.58 10^3/uL (0.1-0.8); Absolute Neutrophil Count 3.62 10^3/uL (1.2-6.7); Basophils % 0.2; Eosinophils % 1.5; HCT 32.1 % (36.0-46.0); HGB 10.8 g/dL (11.2-15.7); Immature Grans % 0.3; Lymphocytes % 25.9; MCH 30.3 pg (27.0-33.0); MCHC 33.6 % (32.0-36.0); MCV 89.9 fL (80-95); MPV 9.8 fL (8.0-11.0); Monocytes % 9.9; Neutrophils % 62.2; Nucleated RBC 0 %; Platelet Count 178 10^3/uL (130-400); RBC 3.57 10^6/uL (3.93-5.22); RDW 11.9 % (11.7-14.6); RDW-SD 39.1 fL; WBC 5.83 10^3/uL (4.4-10.8)
[2020-03-20 07:16] LABS: Anion Gap 7.6 mmol/L (3-11); BUN 6 mg/dL (7-18); C-Reactive Protein 2.74 mg/dL (0.0-0.3); CO2 25.4 mmol/L (21.0-32.0); Calcium 8.5 mg/dL (8.5-10.1); Chloride 107 mmol/L (98-107); Glucose 86 mg/dL (74-106); Potassium 4.1 mmol/L (3.5-5.1); Sodium 140 mmol/L (136-145)
[2020-03-20 07:33] VITALS: BP 94/61; PULSE 78; RESP 16; TEMP 36.9; O2SAT 99
[2020-03-20] MEDS: levoFLOXacin 500 MG, levoFLOXacin 250 MG 750 MG PO (07:42)
[2020-03-20] MEDS: Phenazopyridine 200 MG TAB PO (07:42)
[2020-03-20] MEDS: VANCOMYCIN 1,250 MG in Normal Saline 250 ML 166.667 MG IVPB (07:43)
--- NOTE | 2020-03-20 10:34 | W.PM.DS.N ---
Date of service: 03/20/20 Time of Service: 10:34 DS: Diagnosis Discharge Diagnosis (1) Pyelonephritis: Status: Acute (2) Thigh numbness: Status: Acute (3) Discharge planning issues: Status: Acute Discharge Plan Disposition Patient Disposition: HOME Condition: Improving Discharge Details Reason For Visit: PYELONEPHRITIS Admit Date/Time: 03/19/20 17:47 Admit Provider: Javi Pereira Attending Provider: Javi Pereira Primary Care Provider: Aurea Frey Hospital Course Hospital Course: This is a 19 year old female who presents to the emergency department with a one day history of right flank with urinary urgency/frequency and nausea. Work up in the ED shows findings pyuria and CT showing signs of right pyelonephritis, without hydronephrosis or nephrolithiasis. Patient was given a dose of Rocephin but due to ongoing pain and nausea was admitted for further management and monitoring. After receiving initial culture report antibiotics changed to levaquin and vancomycin added, cultures ultimately grew staphylococcus saprophyticus which should be responsive to a fluoroquinolone which she has been receiving and is clinically improved significantly. She has been able to advance diet and is tolerating well. she is stable and is being discharged to home to complete a 14 day course. discharge plan is discussed with Dr Arellano who is in agreement Home Meds and New Rx's Prescriptions: New acetaminophen [Tylenol] 325 mg Tablet 650 mg PO Q4H PRN PRNQty: 0 RF: 0 phenazopyridine 200 mg Tablet 200 mg PO BID Qty: 10 RF: 0 ibuprofen [IBU] 600 mg Tablet 600 mg PO Q6H PRN PRNQty: 0 RF: 0 levofloxacin 750 mg Tablet 750 mg PO QAM Qty: 11 RF: 0 Continued ibuprofen [Advil] 200 MG tablet 200 mg PO PRN RF: 0 Discharge Instructions Instructions: Kidney Infection (DC) Additional Instructions: take all your antibiotics as prescribed, even if you feel better. drink at least 6-8 glasses of water daily to stay well hydrated. Stand Alone Forms: Nursing Discharge Form Referrals: Scott Small MD [ [facility] ST[facility]FF [facility]YSICIAN] - 03/31/20 9:45 am Activity:: Activity as Tolerated Equipment/Supplies:: No Equipment Needed Diet:: As Tolerated Discharge Orders Discharge Orders: Discharge Order (Routine); Ordered 03/20/20 Ordered By: Kiera Jennings Discharge Data Discharge Date/Time-TO BE ENTERED AT DEPARTURE: 03/20/20 11:30 DS: Summary Status at Discharge Functional status at discharge: independent ambulation Overall status at discharge: patient is progressing back to baseline Mental Status: mental status grossly normal Speech and Movement: speech and movement normal Mood: congruent mood Affect: normal affect Exam Const General: cooperative, healthy appearing and comfortable Nutritional Appearance: average body habitus Orientation: alert, awake and oriented x3 HENMT Head: normal to inspection, normocephalic and atraumatic Mouth: oral mucosae normal Resp Effort & Inspection: normal respiratory effort Auscultation: clear to auscultation bilaterally Cardio Rate: regular rate Rhythm: regular rhythm GI Inspection: normal to inspection Palpation: soft Auscultation: normal bowel sounds Skin General skin exam: no rashes or lesions noted Neuro General: patient alert, patient awake and patient oriented x3 Extrem General: normal to inspection, full ROM and no pedal edema Psych Mental Status: mental status grossly normal Speech and Movement: speech and movement normal Mood: congruent mood Affect: normal affect DS: Data Vitals/I&O Vitals and I&O: Vital Signs Temperature 36.9 C 03/20/20 07:33 Temperature Source Tympanic 03/20/20 07:33 Pulse 78 03/20/20 07:33 Pulse Rhythm Regular 03/20/20 08:54 Respiratory Rate 16 03/20/20 07:33 Respiratory Effort Non-Labored 03/20/20 08:54 Respiratory Depth Normal 03/20/20 08:54 Respiratory Pattern Normal 03/20/20 08:54 Blood Pressure 94/61 L 03/20/20 07:33 Blood Pressure Position Sitting 03/17/20 17:11 Pulse Oximetry 99 03/20/20 07:33 Oxygen Delivery Method Room Air 03/20/20 07:33 Oxygen Flow Rate 0 03/20/20 07:33 Pain Level 5 03/20/20 07:33 Comment 03/20/20 03:24 Intake & Output 03/19/20 03/19/20 03/20/20 11:59 23:59 11:59 Intake Total 2649.5 / 4899.5 2250 / 4899.5 850 / 850 Output Total 1250 / 2350 1100 / 2350 Balance 1399.5 / 2549.5 1150 / 2549.5 850 / 850 Intake: IV 2169.5 / 4419.5 2250 / 4419.5 500 / 500 Oral 480 / 480 350 / 350 Output: Urine 1250 / 2350 1100 / 2350 Other: Urine Color Yellow Burchard Urine Appearance Clear Clear Urine Odor None Normal Comment attempted to perform but pt refused despite 2 different nurse attempts, pt voiding in toilet without difficulty Pt Takes pyridium. pt refusing bladder scans. education given. process of bladder scanning explained. Voiding Methods Toilet Toilet Data Completed and Pending Labs on day of discharge: Labs from last 24 hours 03/20/20 03/20/20 03/20/20 15:00 06:21 06:21 WBC 5.83 RBC 3.57 L Hgb 10.8 L Hct 32.1 L MCV 89.9 MCH 30.3 MCHC 33.6 RDW 11.9 Plt Count 178 MPV 9.8 Immature Gran % 0.3 Neutrophils % 62.2 Lymphocytes % 25.9 Monocytes % 9.9 Eosinophils % 1.5 Basophils % 0.2 Nucleated RBC % 0 Absolute Neutrophils 3.62 Absolute Lymphocytes 1.51 Absolute Monocytes 0.58 Absolute Eosinophils 0.09 Absolute Basophils 0.01 Sodium 140 Potassium 4.1 Chloride 107 Carbon Dioxide 25.4 Anion Gap 7.6 BUN 6 L Creatinine 0.80 Estimated GFR/1.73 m2 >= 60.00 Glucose 86 Calcium 8.5 Magnesium 2.0 C-Reactive Protein 2.74 H Procalcitonin Vancomycin Trough Cancelled 03/19/20 03/19/20 03/19/20 10:12 10:12 10:12 WBC 6.01 RBC 3.60 L Hgb 10.8 L Hct 33.1 L MCV 91.9 MCH 30.0 MCHC 32.6 RDW 11.9 Plt Count 161 MPV 9.1 Immature Gran % 0.2 Neutrophils % 63.9 Lymphocytes % 24.1 Monocytes % 10.3 Eosinophils % 1.3 Basophils % 0.2 Nucleated RBC % 0 Absolute Neutrophils 3.84 Absolute Lymphocytes 1.45 Absolute Monocytes 0.62 Absolute Eosinophils 0.08 Absolute Basophils 0.01 Sodium Potassium Chloride Carbon Dioxide Anion Gap BUN Creatinine Estimated GFR/1.73 m2 Glucose Calcium Magnesium C-Reactive Protein 3.46 H Procalcitonin < 0.1 Vancomycin Trough 03/19/20 10:12 WBC RBC Hgb Hct MCV MCH MCHC RDW Plt Count MPV Immature Gran % Neutrophils % Lymphocytes % Monocytes % Eosinophils % Basophils % Nucleated RBC % Absolute Neutrophils Absolute Lymphocytes Absolute Monocytes Absolute Eosinophils Absolute Basophils Sodium 141 Potassium 3.9 Chloride 108 H Carbon Dioxide 28.7 Anion Gap 4.3 BUN 5 L Creatinine 0.80 Estimated GFR/1.73 m2 >= 60.00 Glucose 104 Calcium 8.7 Magnesium 2.1 C-Reactive Protein Procalcitonin Vancomycin Trough Preliminary micro results at discharge 03/18/20 11:45 Blood Culture - Preliminary Blood NO GROWTH 24 HOURS 03/18/20 08:37 Blood Culture - Preliminary Blood NO GROWTH 24 HOURS [facility] [place] Medical History (Updated 03/19/20 @ 17:14 by Kiera Jennings NP) Migraine Surgical History Meniscectomy done 10/02, Right 3/4 removed 05/05 Left, about 1/2 of meniscus removed (likely she had excess amount on tissue) Family History Mother Dairy product intolerance & several other maternal relatives Father No problems noted. Brother No problems noted. Grandparent Substance abuse Essential hypertension Heart disease Hyperlipidemia Neoplasm Social History Smoking/Tobacco Use Status: Never Alcohol Intake: never Drug use: Never Substance use type: does not use Do you feel safe in your relationship?: Yes
--- NOTE | 2020-03-20 14:01 | PDOC.CMDIS ---
- If Service Date Differs Date of service: 03/20/20 Time of Service: 14:01 LACE Index Scoring Tool - Questions: Length of Stay (in days): 2 Acuity (Admit via E.D.?): Yes E.D. Visits: 1 - Answers: Total Score: 6 Risk of Readmission: Low Risk Care Management Discharge Reason for Hospitalization: Pyelonephritis Discharge Plan: Lizabeth will return home with no additional services today. She will be driven home via private vehicle by her mother. She will follow up with her PCP and discharge plan of care. She is happy to be going home. Patient/Family Education Needs: Review discharge instructions regarding activity levels and medications, discussion of self care needs including ask me three.
== END 2020-03-20 11:30 | disposition home or self-care (01) | DRG 690 ==
LOC: ER 19:49 → MS 20:56
PROVIDERS: Internal Medicine; Nurse Practitioner Family; Admitting Provider General Practice; Emergency Provider Physician Assistant; PCP Nurse Practitioner Family; Visit Provider General Practice
DX: N10 Acute pyelonephritis (principal); R20.2 Paresthesia of skin; B95.7 Other staphylococcus as the cause of diseases classified elsewhere
CPT/HCPCS: 36415; 72158; 80048; 80053; 81025; 84145; 87040; 87077; 96361; 96365; 96367; 96375; 99222; 99225; 99226; 99239; 99285; U0003; 74177; 80202; 81003; 81015; 83735; 85025; 86140; 87086; 87186; 99219; 99232; G0378; J0131; J0696; J1885; J2405; J3490

== ENCOUNTER 2020-03-17 17:45 | Outpatient (REF) | payer BC, SELFPAY ==
[2020-03-17 21:21] LABS: Bilirubin Negative (Negative); Blood Trace-intact (Negative); Clarity Cloudy (Clear); Glucose Negative (Negative); Ketones Trace mg/dL (Negative); Leukocyte Esterase Moderate (Negative); Nitrite Negative (Negative); Urobilinogen 0.2 EU/dL (Up TO 0.2); pH 7.5 (5-8)
[2020-03-17 21:34] LABS: Bacteria Many HPF (Negative); Casts Negative LPF (Negative); Crystals Negative HPF (Negative); Epithelial Cells Few HPF (Negative); Mucus Negative (Negative); WBC >50 HPF (0-5)
[2020-03-17 21:35] LABS: C & S Indicated? Yes
== END 2020-03-17 18:05 ==
LOC: NCHCN 17:45
PROVIDERS: PCP Nurse Practitioner Family; Visit Provider Family Medicine
DX: N39.0 Urinary tract infection, site not specified (principal); R10.9 Unspecified abdominal pain
CPT/HCPCS: 81003; 81015; 87086

== ENCOUNTER 2020-04-10 21:35 | Outpatient (REF) | payer BC, SELFPAY | END 2020-04-10 21:55 | LOC: NCHCN 21:35 | PROVIDERS: PCP Nurse Practitioner Family; Visit Provider Family Medicine | DX: R10.9 Unspecified abdominal pain (principal) | CPT/HCPCS: 87086 ==

== ENCOUNTER 2020-06-09 19:11 | Outpatient (REF) | payer BC, SELFPAY ==
[2020-06-09 21:20] LABS: Bacteria Few HPF (Negative); C & S Indicated? Yes; Casts Negative LPF (Negative); Crystals Negative HPF (Negative); Epithelial Cells Few HPF (Negative); Mucus Negative (Negative)
== END 2020-06-09 19:31 ==
LOC: NCHCN 19:11
PROVIDERS: PCP Nurse Practitioner Family; Visit Provider Family Medicine
DX: N30.00 Acute cystitis without hematuria (principal)
CPT/HCPCS: 81015; 87086

== ENCOUNTER 2020-07-07 17:49 | Outpatient (REF) | payer BC, SELFPAY ==
[2020-07-07 21:11] LABS: Anion Gap 7.9 mmol/L (3-11); BUN 13 mg/dL (7-18); CO2 25.1 mmol/L (21.0-32.0); CREATININE 0.82 mg/dL (0.55-1.02); Calcium 9.2 mg/dL (8.5-10.1); Chloride 103 mmol/L (98-107); Glucose 88 mg/dL (74-106); Potassium 4.8 mmol/L (3.5-5.1); Sodium 136 mmol/L (136-145)
[2020-07-07 21:16] LABS: Abs Immature Grans 0.01 10^3/uL (0.0-0.06); Absolute Basophil Count 0.03 10^3/uL (0.0-0.2); Absolute Eosinophil Count 0.05 10^3/uL (0.0-0.7); Absolute Lymphocyte Count 1.58 10^3/uL (1.2-3.4); Absolute Monocyte Count 0.47 10^3/uL (0.1-0.8); Absolute Neutrophil Count 3.26 10^3/uL (1.2-6.7); Basophils % 0.6; Eosinophils % 0.9; HCT 39.4 % (36.0-46.0); HGB 12.8 g/dL (11.2-15.7); Immature Grans % 0.2; Lymphocytes % 29.3; MCH 29.4 pg (27.0-33.0); MCHC 32.5 % (32.0-36.0); MCV 90.6 fL (80-95); Monocytes % 8.7; Neutrophils % 60.3; Nucleated RBC 0 %; Platelet Count 217 10^3/uL (130-400); RBC 4.35 10^6/uL (3.93-5.22); RDW 13.3 % (11.7-14.6); RDW-SD 44.5 fL
[2020-07-09 14:45] LABS: Chlamydia Result Negative (Negative); GC Result Negative (Negative)
== END 2020-07-07 18:09 ==
LOC: NCHCN 17:49
PROVIDERS: Physician Assistant; PCP Nurse Practitioner Family; Visit Provider Nurse Practitioner Family
DX: R10.2 Pelvic and perineal pain (principal); N76.0 Acute vaginitis; N39.0 Urinary tract infection, site not specified
CPT/HCPCS: 80048; 87491; 87591; 85025; 87086; 87480; 87510; 87660